=== PATIENT | male | born 1955 | race Caucasian/White ===

== ENCOUNTER 2021-10-11 21:34 | Emergency (ER) | payer MEDICARE ==
[2021-10-11] MEDS ORDERED: CORTISPORIN OTI10 M2 AD (22:29)
[2021-10-11 22:38] VITALS: BP 143/83
== END 2021-10-11 22:43 | disposition home or self-care (01) ==
LOC: ED 21:34
PROC: 09C37ZZ Extirpation of Matter from Right External Auditory Canal, Via Natural or Artificial Opening (ICD-10-PCS; principal; 2021-10-11)
DX: T16.1XXA Foreign body in right ear, initial encounter (principal); K21.9 Gastro-esophageal reflux disease without esophagitis; M79.7 Fibromyalgia; X58.XXXA Exposure to other specified factors, initial encounter

== ENCOUNTER 2022-10-21 11:33 | Emergency (ER) | payer MEDICARE ==
[~2022-10-21] VITALS: Ht 175.3 cm; Wt 73.4 kg
[~2022-10-21 11:33] MED LIST: CORTISPORIN OTI10 M2 AD
[2022-10-21 11:41] VITALS: BP 131/77
[2022-10-21] MEDS ORDERED: TRAMADOL HYDROC50 M1 PO (12:32)
[2022-10-21] MEDS ORDERED: KEFLEX500 MG PO (12:32)
[2022-10-21 12:52] VITALS: BP 131/77
== END 2022-10-21 12:53 | disposition home or self-care (01) ==
LOC: ED 11:33
PROC: 0HQGXZZ Repair Left Hand Skin, External Approach (ICD-10-PCS; principal; 2022-10-21)
PROC: 0HDQXZZ Extraction of Finger Nail, External Approach (ICD-10-PCS; 2022-10-21)
DX: S61.311A Laceration without foreign body of left index finger with damage to nail, initial encounter (principal); K21.9 Gastro-esophageal reflux disease without esophagitis; M79.7 Fibromyalgia; W26.8XXA Contact with other sharp object(s), not elsewhere classified, initial encounter; Y93.89 Activity, other specified; Y92.009 Unspecified place in unspecified non-institutional (private) residence as the place of occurrence of the external cause